=== PATIENT | male | born 1980 | race African-American/Black ===

== ENCOUNTER 2016-12-16 09:09 | Emergency (ER) | payer MEDICAID ==
[2016-12-16] MEDS ORDERED: METOCLOPRAMIDE 10 MG/2 ML VIAL ONE (12:25)
[2016-12-16] MEDS ORDERED: DIPHENHYDRAMINE 50 MG/ML VIAL ONE (12:25)
[2016-12-16] MEDS ORDERED: SODIUM CHLORIDE 0.9% 50 ML IV ONE (12:26)
[2016-12-16] MEDS ORDERED: KETOROLAC 30 MG/ML VIAL ONE (12:26)
== END 2016-12-16 13:40 | disposition home or self-care (01) ==
LOC: ER 09:09
DX: R42 Dizziness and giddiness (principal); R51 Headache; I10 Essential (primary) hypertension
CPT/HCPCS: 36415; 80053; 82553; 84484; 85025; 93005; 96374; 96375